=== PATIENT | female | born 1950 | race Caucasian/White ===

== ENCOUNTER 2024-07-11 08:41 | Observation (INO) ==
--- NOTE | 2024-06-05 10:14 | PAT Medication Instructions ---
Medication Instructions Date of Service June 05, 2024 Home Medications Vitamin C 1 tab PO QAM aspirin 81 mg capsule 81 mg PO DAILY atorvastatin 40 mg tablet 40 mg PO HS cholecalciferol (vitamin D3) 125 mcg (5,000 unit) tablet (Vitamin D3) 125 mcg PO DAILY hydrochlorothiazide 12.5 mg tablet 12.5 mg PO HS losartan 25 mg tablet 25 mg PO HS zinc 1 tab PO DAILY ASK your prescriber and surgeon aspirin 81 mg capsule 81 mg PO DAILY DO NOT take the morning of surgery Vitamin C 1 tab PO QAM cholecalciferol (vitamin D3) 125 mcg (5,000 unit) tablet (Vitamin D3) 125 mcg PO DAILY zinc 1 tab PO DAILY Take evening before surgery atorvastatin 40 mg tablet 40 mg PO HS hydrochlorothiazide 12.5 mg tablet 12.5 mg PO HS losartan 25 mg tablet 25 mg PO HS Other Notes NOTHING TO EAT OR DRINK AFTER MIDNIGHT. If you have any questions please call us at [phone] or [phone] or [phone] or [phone]
--- NOTE | 2024-06-13 12:32 | Anesthesiology Consultation ---
Date of Service June 13, 2024 Assessment & Plan (1) Encounter for pre-operative examination: - Infectious disease screening: Per assessment on 06/13/24- No known recent infectious disease contacts or current infectious disease symptoms. - Outpatient joint assessment: Pt currently scheduled for inpatient pathway. If surgeon requests review for outpatient joint pathway, patient is not recommended candidate for outpatient joint program from anesthesia standpoint based on available information. Chart Review Chart Review: Acceptable Risk for Surgery and Patient seen in Pre Admission Testing Teaching & Discussion Pre-Anesthesia Teaching/Discussion Notes: Instructed NPO after midnight before surgery,except medications with 15 cc of water. Medication instructions provided according to the PAT guidelines. History Surgery Operation Date: 07/11/24 09:00 Proposed Procedures p Right Anterior Total Hip Arthroplasty - Jace Jordan, Height/Weight Height: 5 ft 6.5 in Weight: 98.9 kg Allergies Allergy/AdvReac Type Severity Reaction Status Date / Time latex Allergy Unknown Blister/itc Verified 06/05/24 08:55 christel Penicillins Allergy Unknown Itching Verified 06/05/24 09:17 Sulfa (Sulfonamide Allergy Unknown Itching Verified 06/05/24 08:55 Antibiotics) Medications Home Medications Medication Instructions Recorded Confirmed Last Taken Vitamin C 1 tab PO QAM 06/05/24 06/05/24 Unknown aspirin 81 mg capsule 81 mg PO DAILY 06/05/24 06/05/24 Unknown atorvastatin 40 mg tablet 40 mg PO HS 06/05/24 06/05/24 Unknown cholecalciferol (vitamin D3) 125 125 mcg PO DAILY 06/05/24 06/05/24 Unknown mcg (5,000 unit) tablet (Vitamin D3) hydrochlorothiazide 12.5 mg tablet 12.5 mg PO HS 06/05/24 06/05/24 Unknown losartan 25 mg tablet 25 mg PO HS 06/05/24 06/05/24 Unknown zinc 1 tab PO DAILY 06/05/24 06/05/24 Unknown Past Medical History Medical History Dyslipidemia History of COVID-19 (05/2020) Symptoms resolved HTN (hypertension) Hx of blood clots (2019) b/l lower extremities after having Covid; treated with blood thinners Obesity Osteoarthritis of hips, bilateral Renal insufficiency Exercise / Class Metabolic Activity II 4-5 Yardwork/Stairs/Walk up hill Past Surgical History Surgical History History of anesthesia reaction Difficulty breathing/chest heaviness with anesthesia emergence after lapar oscopy History of laparoscopy-assisted vaginal hysterectomy Partial (~1993) Hx of colonoscopy Hx of prior ablation treatment Lumbar ablation done for back pain Hx of total hysterectomy ~1994 Hx of wisdom tooth extraction Past Anesthesia History Other (Difficulty breathing/chest heaviness with anesthesia emergence after laparoscopy, Slow to wake) * Daughter: Abdominal pain with cholecystectomy, D&C x2 History of PONV History of PONV (Single episode) and Hx of Motion Sickness (Situational) Social History Smoking Status: Never smoker Do You Dip or Chew Tobacco: No Hx Alcohol Use: Yes alcohol intake frequency: holidays/special occasions only Hx Substance Use: No substance use type: does not use Review of Systems Patient denies chest pain, shortness of breath, dyspnea on exertion, fever, chills, cough, wheezing, palpitations. Physical Exam Vital Signs BP P TEMP SP02 RESP Physical Full cervical extension range of motion. Full TMJ range of motion. TMD __ finger breaths Mallampati Score ___ Dentition: intact, crown Lungs: clear throughout to auscultation Cardiac: regular rate and rhythm, no murmurs noted Spine: normal Carotid arteries: negative bruit Extremities: no LE edema Lab Results Anesthesia Preop Results Results Anesthesia Widget: WBC 6.25 K/ul (4.8-10.8) 06/13/24 Hgb 14.7 g/dl (12.0-16.0) 06/13/24 Hct 42.9 % (37.0-47.0) 06/13/24 Plt 191 K/uL (130-400) 06/13/24 Na 138 mmol/L (136-145) 06/13/24 K 4.3 mmol/L (3.5-5.1) 06/13/24 Cl 101 mmol/L (98-107) 06/13/24 CO2 32 mmol/L (21-32) 06/13/24 BUN 20 mg/dl (6-23) 06/13/24 Creat 1.13 mg/dl (0.6-1.2) 06/13/24 Glucose Level 93 mg/dl (70-99(Fasting)) 06/13/24 PT 10.6 Seconds (9.0-12.0) 06/13/24 PTT 25 Seconds (21-31) 06/13/24 INR 1.0 (0.9-1.1) 06/13/24 Blood Type A Negative 06/13/24 Antibody Screen NEGATIVE 06/13/24 Testing Electrocardiogram Date: 06/13/24 SB at 56bpm. "Otherwise normal ECG" Chest X-Ray Date: 06/13/24 FINDINGS: Heart size is normal. Lungs are clear. No pneumothorax or pleural effusion. Bones appear grossly intact. IMPRESSION: No acute process.
--- NOTE | 2024-07-10 06:59 | History & Physical Report ---
Date of Service July 10, 2024 Assessment & Plan (1) Osteoarthritis of right hip: We will proceed with a right anterior total of arthroplasty. Postoperatively she will be started on Eliquis for DVT prophylaxis and kept overnight in the hospital for postop medical management. [facility]. History of Present Illness Chief Complaint: Osteoarthritis of the right hip. Primary Care Provider: Po Farley DO Mary is a pleasant 73-year-old female who has been dealing with chronic increasing right hip and groin pain. She had seen another local physician. She has had multiple intra-articular hip injections. Unfortunately, her hips are still really bothering her. X-rays and clinical examination have been diagnostic for advanced osteoarthritis of the right hip. After failing conservative treatment, she has elected to proceed with a right anterior total of arthroplasty. Allergies Allergy/AdvReac Type Severity Reaction Status Date / Time latex Allergy Unknown Blister/itc Verified 06/05/24 08:55 christel Penicillins Allergy Unknown Itching Verified 06/05/24 09:17 Sulfa (Sulfonamide Allergy Unknown Itching Verified 06/05/24 08:55 Antibiotics) Home Medications Medication Instructions Recorded Confirmed Type Vitamin C 1 tab PO QAM 06/05/24 06/05/24 History aspirin 81 mg capsule 81 mg PO DAILY 06/05/24 06/05/24 History atorvastatin 40 mg tablet 40 mg PO HS 06/05/24 06/05/24 History cholecalciferol (vitamin D3) 125 125 mcg PO DAILY 06/05/24 06/05/24 History mcg (5,000 unit) tablet (Vitamin D3) hydrochlorothiazide 12.5 mg tablet 12.5 mg PO HS 06/05/24 06/05/24 History losartan 25 mg tablet 25 mg PO HS 06/05/24 06/05/24 History zinc 1 tab PO DAILY 06/05/24 06/05/24 History Past Med/Surg History Problem List (Updated 07/10/24 @ 06:58 by Jace Jordan DO) Osteoarthritis of right hip Encounter for pre-operative examination Medical History Obesity Osteoarthritis of hips, bilateral Renal insufficiency Hx of blood clots (2019) b/l lower extremities after having Covid; treated with blood thinners History of COVID-19 (05/2020) Symptoms resolved HTN (hypertension) Dyslipidemia Surgical History History of anesthesia reaction Difficulty breathing/chest heaviness with anesthesia emergence after laparoscopy Hx of colonoscopy Hx of prior ablation treatment Lumbar ablation done for back pain History of laparoscopy-assisted vaginal hysterectomy Partial (~1993) Hx of wisdom tooth extraction Hx of total hysterectomy ~1994 Social History Smoking Status: Never smoker Second Hand Exposure: No; Do You Dip or Chew Tobacco: No; Tobacco Cessation Education Requested by Patient: No Hx Alcohol Use: Yes Hx Substance Use: No Preferred Language: Yakut Communication Ability: Effective [employer] Supervisor Required: No Beliefs That Will Affect Care: None Current Living Situation: Spouse Other Information That Helps Us Care for You: No Feels Safe at Home: Yes Safety Concerns: Feels Safe At This Time Assistive Devices: Cane and Walker Assistive Devices Comment: uses cane/ walker prn Review of Systems All systems reviewed & are unremarkable except as noted in HPI & below. Physical Exam On physical exam of the right hip, she has decreased range of motion. She has pain with forced internal/external rotation. All of her pain is located in the groin.. Constitutional WD/WN, vitals as above Eyes PERRL, conjunctivae normal, anicteric sclerae ENMT external ear and nose normal, oropharynx normal Neck trachea midline, no thyromegaly Respiratory normal respiratory effort Cardiovascular RRR, no murmur, no edema Gastrointestinal (Abdomen) normal bowel sounds, soft, nontender, no hepatosplenomegaly Psychiatric A+Ox3, euthymic affect Results & Data Results & Data Laboratory Results . Diagnostic Findings X-rays of the right hip show advanced osteoarthritis with joint space narrowing, osteophyte formation, and [id number] tubulation. PG Care Time/CCT Total # of Minutes Spent Total Time Spent with Patient: Total time spent is greater than 50% in coordination of care (as documented) at patient's floor/unit and/or counseling patient: Coding Level of Care Code None Diagnoses Osteoarthritis of right hip M16.11
[~2024-07-11 08:41] MED LIST: ROPIVACAINE 0.5% 5 MG/ML 30 ML VIAL ONE
[2024-07-11] MEDS ORDERED: MIDAZOLAM HCL 1 MG/ML 2ML VIAL ONE ×2 (09:42)
[2024-07-11] MEDS: LR 500ML BOLUS, THEN 15ML/HR IV SCH (09:55)
[2024-07-11] MEDS: LR 60ML/HR IV SCH (09:55)
[2024-07-11] MEDS: FAMOTIDINE 20 MG TAB PO SCH (09:57)
[2024-07-11] MEDS: GABAPENTIN 300 MG CAP PO SCH (09:57)
[2024-07-11] MEDS: dexAMETHasone**PF** 10 MG/ML VIAL IV SCH (09:57)
[2024-07-11] MEDS: ACETAMINOPHEN 500 MG TAB PO SCH ×3 (09:57→18:06)
--- NOTE | 2024-07-11 10:45 | History & Physical Bridge Note ---
Date of Service July 11, 2024 History & Physical Bridge Note I have examined the patient, reviewed the History & Physical and in the interval since the performance of the History & Physical I have noted the following changes of clinical significance: no changes noted
[2024-07-11] MEDS ORDERED: HYDROmorphone INJ 1 MG/ML SYRINGE IV PRN ×2 (11:17→13:32)
[2024-07-11] MEDS ORDERED: ONDANSETRON INJ 2 MG/ML 2 ML VIAL IV PRN ×2 (11:17→13:32)
[2024-07-11] MEDS ORDERED: ePHEDrine sulfate 50 MG/ML AMP IV PRN (11:17)
[2024-07-11] MEDS ORDERED: ATROPINE SULFATE 0.1 MG/ML 10ML SYR IV PRN (11:17)
[2024-07-11] MEDS: TRANEXAMIC ACID 1,000 MG **IV Pre-op IV SCH (11:24)
[2024-07-11] MEDS: ceFAZolin 2000MG 2,000 MG/15 ML SYR IV SCH ×2 (11:39→20:21)
[2024-07-11] MEDS ORDERED: LIDOCAINE 2% 2 ML VIAL/AMP(20MG/ML) INFIL ONE (12:02)
[2024-07-11] MEDS ORDERED: PROPOFOL IV EMULSION 10 MG/ML 20 ML VIAL IV ONE (12:02)
[2024-07-11] MEDS ORDERED: ONDANSETRON INJ 2 MG/ML 2 ML VIAL ONE (12:02)
[2024-07-11] MEDS: TRANEXAMIC ACID 1,000 MG **IV Intra-op IV SCH (12:54)
[2024-07-11] MEDS: ROPIV 0.5% 246mg, Ketorolac 30mg, EPINEPHrine 0.5mg in NSS INFIL SCH (12:54)
[2024-07-11] MEDS ORDERED: PHENYLEPHRINE HCL 10 MG/ML VIAL ONE (12:55)
[2024-07-11] MEDS ORDERED: ePHEDrine sulfate 50 MG/5 ML SYR ONE (12:55)
[2024-07-11] MEDS ORDERED: HYDROmorphone INJ 0.5 MG/0.5 ML SYR IV PRN (13:32)
[2024-07-11] MEDS ORDERED: METOCLOPRAMIDE HCL INJ 5 MG/ML 2 ML VIAL IV PRN (13:32)
[2024-07-11] MEDS ORDERED: MAGNESIUM HYDROXIDE SUSP 30 ML UDC PO PRN (13:32)
[2024-07-11] MEDS ORDERED: bisacodyL 10 MG SUPP PR PRN (13:32)
[2024-07-11] MEDS ORDERED: NALOXONE HCL 0.4 MG/1 ML VIAL/CARP IV PRN (13:32)
[2024-07-11] MEDS ORDERED: oxyCODONE HCL IR 5 MG TAB (IMMEDIATE RELEASE) PO PRN (13:32)
[2024-07-11] MEDS ORDERED: diphenhydrAMINE Capsule 25 MG CAP PO PRN (13:32)
--- NOTE | 2024-07-11 13:56 | Fluoroscopy Report ---
FL hip RT 1V CLINICAL HISTORY: RT ANT HIP COMPARISON STUDY: Right hip radiograph April 22, 2024. FLUOROSCOPY TIME: 19 seconds. Ka, r: 2.3486 mGy FLUOROSCOPIC IMAGES: 1 FINDINGS: Fluoroscopy was provided during anterior total right hip arthroplasty. Alignment is anatomi c. There is no acetabular screw. No fractures are identified. IMPRESSION: Fluoroscopy provided during anterior total right hip arthroplasty. ACT 112: Negative or not required by law. Electronically signed by: Domenico Villafana M.D. 07/11/2024 1:54 PM
--- NOTE | 2024-07-11 14:23 | XRay Report ---
XR hip 1V RT w pelvis CLINICAL HISTORY: Postoperative evaluation. COMPARISON: Right hip radiographs April 22, 2024. FINDINGS: Alignment of the total right hip arthroplasty is anatomic. There is no periprosthetic frac ture or unexpected radiopaque foreign body. There are skin baudilio. Acetabular screw is in place. Sev ere left hip joint space narrowing is noted with osteophytosis and subchondral sclerosis. A lucency p rojects over the left femoral head. IMPRESSION: Expected findings following total right hip arthroplasty. ACT 112: Negative or not required by law. Electronically signed by: Domenico Villafana M.D. 07/11/2024 2:21 PM
--- NOTE | 2024-07-11 14:57 | Operative Report ---
PG Post Operative Report Pre & Post Diagnosis Operation Date: 07/11/24 11:00 Pre-Op Diagnosis: Osteoarthritis of right hip Post-Op Diagnosis: Osteoarthritis of right hip I identified the patient and participated in the time-out.: Yes Procedure Operation Date: 07/11/24 11:00 Actual Procedures p Right Anterior Total Hip Arthroplasty(Right) - Jace Jordan DO Surgeon Jace Jordan DO Senior Medical Technologist Shanell Johnson PA-C Estimated Blood Loss 250 Findings Consistent with Post-Op Diagnosis Specimens Right femoral head Description of Procedure Implants used I used a ZimmerBiomet total hip arthroplasty system with a size 2 high offset Avenir Complete stem, a 52 mm G7 cup with a 25mm screw, an E1 polyethylene liner, a 36 mm ceramic head with a 0 neck. Mary arrived at the hospital for the above procedure. She was seen in the preoperative holding area and the operative extremity was identified and signed. She was given a spinal anesthetic, a preoperative antibiotic, and TXA. She was then taken back to the operating room and laid on the table in the supine position. She was given basic sedation. The operative leg was secured to a Puristst leg positioner. The hip was then prepped and draped in sterile fashion. A timeout was done and the patient and the operative extremity was properly identified. An anterior approach was used. Dissection was taken down through the fascia and the tensor muscle belly was retracted laterally and the rectus was retracted medially. The circumflex vessels were identified and ligated. The capsule was then incised and tagged for later repair. The femoral neck was then cut and the femoral head was removed. The acetabulum was exposed. Time was spent doing a complete circumferential labral release. Sequential reaming of the acetabulum up to a size 51 reamer was done. Final reamings were done under fluoroscopy to ensure appropriate version. A Biomet 52 mm G7 cup was then impacted into place. A single 25 mm screw was placed. The E1 polyethylene liner was then snapped into place. Surrounding soft tissues were then injected with 100 cc of an orthopedic pain control cocktail. The proximal femur was then exposed. Sequential broaching up to a size 2 broach was done. Off that broach a size 36 head with a 0 neck was trialed. The hip was reduced and fluoroscopic images showed anatomic alignment of the implants in acceptable length. The broach was removed. The final size 2 high offset Avenir Complete stem was then impacted into place. A ceramic 36 mm head with a 0 neck was then impacted onto the stem and the hip was reduced. Final fluoroscopic images showed anatomic alignment of the hip. The capsule was then closed with #1 Vicryl suture. A dilute betadyne lavage was then done for 3 minutes. The joint was then irrigated with normal saline solution. The fascia was closed with #1 PDS suture. Skin was closed with 2-0 Vicryl, baudilio, and a Silverlon dressing. She was then transferred to a hospital bed and taken to the post anesthesia care unit in stable condition. She tolerated the procedure well. Shanell Johnson PA-C was present for the entire procedure. He was critical for patient positioning, prepping, draping, retraction exposure, wound closure and application of sterile dressing. I attest to the content of the Intraoperative Record and any orders documented therein. Any exceptions are noted below.
--- NOTE | 2024-07-11 15:05 | Anesthesiology Progress Note ---
Date of Service July 11, 2024 Anesthesia Post Procedure Vital Signs Vital Signs: Temp Pulse Resp BP Pulse Ox O2 Del Method O2 Flow Rate 07/11/24 15:00 60 14 114/66 94 Room Air 07/11/24 14:45 62 18 102/60 95 Room Air 07/11/24 14:25 36.3 C L 63 16 106/63 96 Room Air 07/11/24 14:15 64 20 106/65 96 Room Air 07/11/24 14:05 70 16 118/58 L 98 Room Air 07/11/24 13:55 65 14 114/60 99 Room Air 07/11/24 13:45 66 14 106/64 99 Oxymask 3 07/11/24 13:34 36.6 C 74 16 105/71 96 Oxymask 6 07/11/24 09:38 36.8 C 66 18 148/99 H 99 Room Air Pain Intensity Right Hip: Pain Intensity: 5 Transfer of Care Handoff Completed per policy Notes Mental Status: alert / awake / arousable Patient Amnestic to Procedure: Yes Nausea / Vomiting: adequately controlled Pain: adequately controlled Airway Patency, RR, SpO2: stable & adequate BP & HR: stable & adequate Hydration State: stable & adequate Neuraxial Anesthesia: was administered and sensory block is resolving Anesthetic Complications: no major complications apparent
[2024-07-11] MEDS ORDERED: Nursing to Pharmacy Communication SCH (16:15)
[2024-07-11] MEDS: KETOROLAC TROMETHAMINE 15 MG/ML VIAL IV SCH (16:37)
--- OUTSIDE RECORDS SUMMARY | 2024-07-11 19:11 | External Medical Summary | Summary of Care ---
Author Name Unknown Organization [facility] Address [address] [place] [address] Phone [phone] Care Team Providers Care Search Engineer Name Role Phone Andrei Farely DO Primary Care Provider Reason for Visit * Reason Onset Date Comments Medication Refill 06/26/2024 Encounter Details Date Type Department Care Team (Late st Contact Info) Description 06/26/2024 Refill Family Practice [facility] [address] [place] [address] Andrei Farley DO [address] [place] [address] Encounter for long-term (current) use of medications*; Dyslipidemia, goal LDL below 130 Allergies Active Allergy Reactions Criticality Noted Date Comments Latex 10/28/1999 Peanut Oil Diarrhea 02/07/2022 Soy Allergy 08/13/2014 Sulfa Antibiotics 12/04/2005 rash documented as of this encounter (statuses as of 06/27/2024) Medications Medication Sig Dispensed Refills Start Date End Date Status Cyanocobalamin (VITAMIN B-12) 1000 MCG Tablet Take 1 Tablet by mouth in the morning. Active Vitamin C 100 MG Oral Tablet Take 1 Tablet by mouth in the morning. Active Vitamin D 25 MCG (1000 UT) Oral Tablet Take by mouth. Active Aspirin 81 MG Oral Tablet Delayed Release Take 1 Tablet by mouth in the morning. 2 tablets daily. Active hydroCHLOROthiazi de 25 MG Oral Tablet (Hydrodiuril)Fouzia cations:HTN, goal below 130/80,HTN, goal below 150/90,Leg swelling Take 1/2 to 1 tablet by mouth daily as needed for leg swelling. 90 Tablet 3 03/06/2024 Active Atorvastatin Calcium 40 MG Oral Tablet (Lipitor)Indicati ons:takes at night Take 1 Tablet by mouth in the morning. 90 Tablet 1 06/27/2024 Active Losartan Potassium 25 MG Oral Tablet (Cozaar) Take 1 Tablet by mouth in the morning. 90 Tablet 1 06/27/2024 Active Atorvastatin Calcium 40 MG Oral Tablet (Lipitor)Indicati ons:takes at night Take 1 Tablet by mouth in the morning. 90 Tablet 1 01/27/2024 06/26/2024 Discontinued (Refill) Losartan Potassium 25 MG Oral Tablet (Cozaar) Take 1 Tablet by mouth in the morning. 90 Tablet 1 01/27/2024 06/26/2024 Discontinued (Refill) documented as of this encounter (statuses as of 06/27/2024) Active Problems Problem Noted Date Diagnosed Date History of DVT (deep vein thrombosis) 12/06/2022 Hypertensive kidney disease with stage 3a chronic kidney disease 01/05/2022 Hypertensive kidney disease with stage 3b chronic kidney disease 08/08/2021 Overview: Per CKD protocol Prediabetes 04/04/2021 Overview: Per Prediabetes protocol Advanced directives, counseling/discussion 11/06 Pelvic pain in female 01/31/2019 Urge incontinence of urine 01/31/2019 History of endometriosis 08/22/2018 Advanced directives, counseling/discussion 08/13 HTN, goal below 130/80 08/13/2018 Obesity, Class I, BMI 30.0-34.9 (see actual BMI) 08/13/2018 Cystocele, lateral 03/26/2018 H/O hysterectomy for benign disease 03/26/2018 Irritable bowel syndrome 12/04/2005 Mitral valve disorder documented as of this encounter (statuses as of 06/27/2024) Resolved Problems Problem Noted Date Diagnosed Date Resolved Date Acute deep vein thrombosis ( DVT) of proximal vein of left lower extremity 01/05/2022 12/06/2022 Chronic kidney disease, stage 3b 09/05/2021 03/06/2024 Overview: Per CKD protocol Hypertensive kidney disease with stage 3a chronic kidney disease 07/05/2020 08/11/2021 Overview: Per CKD protocol Hypertensive kidney disease with chronic kidney disease stage III 06/04/2019 07/08/2020 Overview: Per CKD protocol Kidney disease, chronic, sta ge III (GFR 30-59 ml/min) 02/03/2019 06/11/2019 Overview: Per CKD protocol Need for pneumococcal vaccination 08/13/2018 09/11/2018 Hair loss 08/13/2018 09/11/2018 Breast cancer screening 03/26/201812/2018 Encounter for examination fo r normal comparison and control in clinical research program 01/23/2018 03/29/2020 Overview: DO NOT DELETE [employer] DETECT Study: Project # [id number], Shop Estimator: Gareth Hairston, PhD. SUMMARY: Goal: Establish test characteristics (sensitivity, specificity, PPV, NPV) of a circulating tumor DNA (ctDNA)-based test for cancer. Hypothesis: Circulating tumor DNA (ctDNA) and elevated protein biomarkers (together, the marker panel) can be detected in asymptomatic individuals with early cancer. Specific Aim 1: Determine the prevalence of a positive marker panel test in a prospective clinical cohort of 10,000 asymptomatic women ages 65 to 75 years. Specific Aim 2: Determine the sensitivity, specificity, positive predictive value (PPV) and negative predictive value (NPV) of a marker panel test to identify histologically proven cancers that develop within 5-years of the marker panel evaluation. CONTACTS: During normal business hours, contact study staff at ; after hours Shop Estimator via the [facility] hospital dosier operator . Please contact study team before resolving/deleting from patients problem list. Study phone number: [phone]. Diagnosis changed due to Research Module. Go to Snapshot for study details. Encounter for examination fo r normal comparison and control in clinical research program 01/23/2018 04/27/2022 Overview: DO NOT DELETE - [employer] DETECT Study: Project # [id number], Shop Estimator: Mario Alberto Alicia, MS, MPH. SUMMARY: Goal: Establish test characteristics (sensitivity, specificity, PPV, NPV) of a circulating tumor DNA (ctDNA)-based test for cancer. - Hypothesis: Circulating tumor DNA (ctDNA) and elevated protein biomarkers (together, the marker panel) can be detected in asymptomatic individuals with early cancer. - Specific Aim 1: Determine the prevalence of a positive marker panel test in a prospective clinical cohort of 10,000 asymptomatic women ages 65 to 75 years. - Specific Aim 2: Determine the sensitivity, specificity, positive predictive value (PPV) and negative predictive value (NPV) of a marker panel test to identify histologically proven cancers that develop within 5-years of the marker panel evaluation. - CONTACTS: During normal business hours, contact study staff at ; after hours Shop Estimator via the [facility] hospital dosier operator . - Please contact study team before resolving/deleting from patients problem list. Study phone number: [phone]. Diagnosis changed due to Research Module. Go to Snapshot for study details. Hypertension 11/29/2018 documented as of this encounter (statuses as of 06/27/2024) Immunizations Name Administration Dates Next Due COVID-19, mRNA, LNP-s, No Pr eserve, Ages 6 Mos-5 Yrs (Moderna) 11/10/2021,12/10/2020,11/19/2020 Pneumococcal Conjugate Vacc, 13 Valent (Prevnar) 05/09/2017 Pneumococcal Polysaccharide PPV23 (Pneumovax) 08/13/2018 Seasonal Influenza Vac., MDV , IM, 0.5 mL (Fluzone) 05/26/2011,07/24/2007,06/14/2006 Seasonal Influenza, Quadriva lent Hd (Fluzone Hd) 05/15/2022,06/30/2021 TDAP, Age 7 and older, IM (Adacel) 01/02/2011 Zoster Vaccine Recombinant (Shingrix) 05/19/2021 ,06/18/2019 documented as of this encounter Social History Tobacco Use Types Packs/Day Years Used Date Smoking Tobacco: Never Smokeless Tobacco: Never Comments:occ passive smoke Alcohol Use Standard Drinks/Week Comments Yes 0 (1 standard drink = 0.6 oz pur e alcohol) occasional PHQ-2 Answer Date Recorded PHQ Adult Total Score 0 08/08/2021 Hunger Vital Sign Answer Date Recorded Worried About Running Out of Food in the Last Ye ar Never true 04/14/2020 Ran Out of Food in the Last Year Never true 04/14/2020 Utilities Answer Date Recorded Do you have trouble paying y our heating, water, or electric bill? (Adult - for ages 18 years and over) Not on file 02/12/2024 Is your family able to pay t he heat, water, or electric bill? (Household - for ages 0-17 years) Not on file 02/12/2024 Does your family have access to good internet? (Household - for ages 0-17 years) Not on file 02/12/2024 Social Connections Answer Date Recorded How often do you feel lonely or isolated from those around you? (Adult - for ages 18 years and over) Not on file 02/12/2024 Sex and Gender Information Value Date Recorded Sex Assigned at Female 04/14/2020 9:09 AM EDT Gender Identity Female 04/14/2020 9:09 AM EDT Sexual Orientation Straight 04/14/2020 9: 09 AM EDT Job Start Date Occupation Industry Not on file Not on file Not on file documented as of this encounter Miscellaneous Notes * Telephone Encounter - Emile Valenzuela [facility] - 06/27/2024 8:29 AM EDTSigned Prescriptions: Disp Refills Atorvastatin Calcium 40 MG Oral Tablet (Li*90 Tab*1 Sig: Take 1 Tablet by mouth in the morning.Authorizing Provider: ANDREI FARLEY User: EMILE LINDSAY Losartan Potassium 25 MG Oral Tablet (Coza*90 Tab*1 Sig: Take 1 Tablet by mouth in the morning.Authorizing Provider: ANDREI FARLEY User: EMILE LINDSAY Electronically signed by Emile Valenzuela [facility] at 06/27/2024 8:29 AM EDT * Telephone Encounter - Emile Valenzuela [facility] - 06/27/2024 8:27 AM EDT Provided 90 days supply with 1 refill(s) until upcoming appointment. Per refill protocol patient should have Lipid panel and CMP on file within past year. Reviewed AMP report, Care Gaps/Health Maintenance, medications list, and for any routine labs typically ordered for this patient. Lab orders placed. Please contact patient to advise of labs ordered for blood draw. Fasting is not required. Advise toobtain labs before her scheduled office visit 09/08/2024. Thank You, Emile Lindsay [facility] Clinical Pharmacist [facility] ([facility]) 06/27/2024, 8:27 AM Electronically signed by Emile Valenzuela [facility] at 06/27/2024 8:29 AM EDT * Telephone Encounter - Nafisa Linton PHARM Tech - 06/26/2024 9:08 AM EDT Did you pend patient's preferred pharmacy and medication before forwarding?yes Pharmacy: [facility] [address] [place] [address] Pending Prescriptions: Disp Refills Atorvastatin Calcium 40 MG Oral Tablet (L*90 Tab*1 Sig: Take 1 Tablet by mouth in the morning. Losartan Potassium 25 MG Oral Tablet (Coz*90 Tab*1 Sig: Take 1 Tablet by mouth in the morning. Last Visit: 03/06/2024 (in office), Visit date not found (telemedicine) Next Visit: 09/08/2024 If no future appointments scheduled, and last appointment is greater than a year ago, please schedule patient for a follow-up appointment Last date the medication was ordered: 01/27/2024 Is this request for a controlled substance?No Urine Drug Screen:No results found for this or any previous visit. Patient Phone Numbers Labs: Lab Results Component Value Date/Time CREAT 1.1 (H) 06/25/2023 09:38 AM CREAT 1.1 (H) 01/13/2019 09:50 AM POTASSIUM 4.6 06/25/2023 09:38 AM POTASSIUM 4.8 11/07/2019 09:21 AM TSH 1.74 08/13/2018 09:29 AM LDL 84 06/25/2023 09:38 AM LDL 143 (H) 08/13/2018 09:29 AM LDL 153. (H) 05/07/1996 11:45 AM ALT 25 06/25/2023 09:38 AM ALT 22 06/22/2014 03:40 PM HGBA1C 5.9 (H) 06/25/2023 09:38 AM HGBA1C 5.5 08/13/2018 09:29 AM documented in this encounter Plan of Treatment Upcoming Encounters Date Type Department Care Team (Late st Contact Info) Description 07/16/2024 11:00 AM EST Office Visit Orthopaedics [facility] [address] [place] [address] Jace Andrade, DO [address] [place] [address] 09/08/2024 3:00 PM EST Office Visit [facility] [address] [place] [address] Andrei Farley, DO [address] [place] [address] 03/19/2025 10:20 AM EDT Office Visit [facility] [address] [place] [address] Andrei Farley, DO [address] [place] [address] 03/09/2026 9:40 AM EDT Office Visit [facility] [address] [place] [address] Andrei Farley, DO [address] [place] [address] Scheduled Orders Name Type Priority Associated Diagnoses Orde r Schedule LIPID PANEL WITH DIRECT LDL IF TG IS HIGH Lab Routine Encounter for long-term (current) use of medications Expected: 06/27/2024 (Approximate), Expires: 06/27/2025 COMPREHENSIVE METABOLIC PANEL Lab Routine Encounter for long-term (current) use of medications Expected: 06/27/2024 (Approximate), Expires: 06/27/2025 Scheduled Procedures Name Priority Associated Diagnoses Date/Ti me COLONOSCOPY FLEXIBLE PROXIMAL DIAGNOSTIC Recall History of colon polyps Health Maintenance Due Date Last Done Comments Cologuard 1996 Sigmoidoscopy 1996 Fecal Occult Blood Test 11/24/1998 11/24/1997 DTap/Tdap Vaccines (2 - Td or Tdap) 01/02/2021 01/02/2011, 01/25/2001, 01/14/1990 Adult Wellness Visit 08/08/2022 08/08/2021 Depression Screening 08/08/2022 08/08/2021 CKD HGB USE SMARTSET 65501 06/08/202306/08, 06/08/2022, 03/18/2021, Additional history exists GFR 12/25/2023 06/25/2023, 05/27, 01/30/2022, Additional history exists COVID-19 Vaccine ( season) 2024 11/10/2021, 12/10/2020, 11/19/2020 Influenza Vaccine (FLU shot) (#1) 2024 05/15/2022, 06/30/2021, 05/26/2011, Additional history exists Albumin/Creatinine Ratio 06/25/2024 023, 02/03/2022, 01/13/2019 CKD PHOS USE SMARTSET 26382 06/25/202405/29, 06/08/2022, 01/30/2022, Additional history exists HbA1c 06/25/2024 06/25/2023, 05/27, 01/30/2022, Additional history exists Mammogram 03/19/2025 03/19/2024, 02/24, 09/09/2021, Additional history exists Colonoscopy 02/17/2027 02/17/2022, 01/26, 08/18/2014, Additional history exists Colorectal Cancer Screening 02/17/2027 Lipid Panel 06/25/2028 06/25/2023, 05/27, 01/30/2022, Additional history exists DXA Scan Discontinued 10/23/2001, 10/23/2001 Pneumococcal Vaccine: 65+ Years Completed 08/13/2018, 05/09/2017 Zoster Vaccines Completed 05/19/2021, 06/18/2019 RETIRED - COLONOSCOPY-EVERY 5 YRS AGES 18-100 Discontinued 02/17/2022, 02/17/2022, 08/18/2014, Additional history exists HPV (Gardasil) Vaccine Aged Out No lo nger eligible based on patient's age to complete this topic Hepatitis B Vaccine Aged Out No longe r eligible based on patient's age to complete this topic MENINGOCOCCAL (MENACTRA/MENVEO) Aged Out No longer eligible based on patient's age to complete this topic documented as of this encounter Medical Devices Not on filedocumented as of this encounter Visit Diagnoses Diagnosis Encounter for long-term (current) use of medications- Primary Encounter for long-term (current) use of other medications Dyslipidemia, goal LDL below 130 Other and unspecified hyperlipidemia documented in this encounter Care Teams Search Engineer Relationship Specialty Start Date End Date Andrei Farley DO [address] [place] [address] PCP - General Family Medicine 03/26/18 documented as of this encounter
--- OUTSIDE RECORDS SUMMARY | 2024-07-11 19:11 | External Medical Summary | Summary of Care ---
Author Name Unknown Organization [facility] Address [address] [place] [address] Phone [phone] Care Team Providers Care Song Lyricist Name Role Phone Andrei Farley DO Primary Care Provider Reason for Visit * Reason Onset Date Comments Medication Refill 06/26/2024 Encounter Details Date Type Department Care Team (Late st Contact Info) Description 06/26/2024 Refill Family Practice [facility] [address] [place] [address] Andrei Farley DO [address] [place] [address] Encounter for long-term (current) use of medications*; Dyslipidemia, goal LDL below 130 Allergies Active Allergy Reactions Criticality Noted Date Comments Latex 10/28/1999 Peanut Oil Diarrhea 02/07/2022 Soy Allergy 08/13/2014 Sulfa Antibiotics 12/04/2005 rash documented as of this encounter (statuses as of 06/30/2024) Medications Medication Sig Dispensed Refills Start Date [...] as of this encounter (statuses as of 06/30/2024) Active Problems Problem Noted Date Diagnosed Date [...] as of this encounter (statuses as of 06/30/2024) Resolved Problems Problem Noted Date Diagnosed Date [...] program 01/23/2018 03/29/2020 Overview: DO NOT DELETE [employer] DETECT Study: Project # [id number], Tax Services Specialist: Gareth Hairston, PhD. SUMMARY: Goal: Establish test [...] contact study staff at ; after hours Tax Services Specialist via the [facility] hospital offset second press operator . Please contact study team before resolving/deleting from patients problem list. Study phone number: [phone]. Diagnosis changed due to Research Module. Go to Snapshot for study details. Encounter for examination fo r normal comparison and control in clinical research program 01/23/2018 04/27/2022 Overview: DO NOT DELETE - [employer] DETECT Study: Project # [id number], Tax Services Specialist: Mario Alberto Alicia, MS, MPH. SUMMARY: Goal: [...] contact study staff at ; after hours Tax Services Specialist via the [facility] hospital offset second press operator . - Please contact study team before resolving/deleting from patients problem list. Study phone number: [phone]. Diagnosis changed due to Research Module. Go to Snapshot for study details. Hypertension 11/29/2018 documented as of this encounter (statuses as of 06/30/2024) Immunizations Name Administration Dates Next Due COVID-19, mRNA, LNP-s, No Pr eserve, Ages 6 Mos-5 Yrs (Moderna) 11/10/2021,12/10/2020,11/19/2020 Pneumococcal Conjugate Vacc, 13 Valent (Prevnar) 05/09/2017 Pneumococcal Polysaccharide PPV23 (Pneumovax) 08/13/2018 Seasonal Influenza Vac., MDV , IM, 0.5 mL (Fluzone) 05/26/2011,07/24/2007,06/14/2006,06/27 Seasonal Influenza, Quadriva lent Hd (Fluzone Hd) 05/15/2022,06/30/2021 TD - Tetanus/Diptheria (ADULT) 01/25/2001,198901/25/2011 TDAP, Age 7 and older, IM (Adacel) [...] encounter Miscellaneous Notes * Telephone Encounter - Ayaka Lira - 06/30/2024 5:42 PM EST Received message from [facility] regarding patient needing labs. Patient was notified. Successfully contacted patient and provided [facility] message. * Telephone Encounter - Emile Valenzuela, [facility] - 06/27/2024 8:29 AM EDTSigned Prescriptions: Disp Refills Atorvastatin Calcium 40 MG Oral Tablet (Li*90 Tab*1 Sig: Take 1 Tablet by mouth in the morning.Authorizing Provider: ANDREI FARLEY User: EMILE LINDSAY Losartan Potassium 25 MG Oral Tablet (Coza*90 Tab*1 Sig: Take 1 Tablet by mouth in the morning.Authorizing Provider: ANDREI FARLEY User: EMILE LINDSAY * Telephone Encounter - Emile Valenzuela [facility] - 06/27/2024 8:27 AM EDT Provided 90 [...] office visit 09/08/2024. Thank You, Emile Lindsay [facility] Clinical Pharmacist Centralized Clinical Pharmacy Services ([facility]) 06/27/2024, 8:27 AM * Telephone Encounter - Nafisa Linton PHARM Tech - 06/26/2024 9:08 AM EDT Did you pend patient's preferred pharmacy and medication before forwarding?yes Pharmacy: [facility] [address] [place] [address] Pending Prescriptions: Disp Refills Atorvastatin Calcium 40 [...] 07/16/2024 11:00 AM EST Office Visit Orthopaedics [facility] [address] [place] [address] Jace Andrade, DO [address] [place] [address] 09/08/2024 3:00 PM EST Office Visit [facility] [address] [place] [address] Andrei Farley DO [address] [place] [address] 03/19/2025 10:20 AM EDT Office Visit [facility] [address] [place] [address] [address] Andrei Farley, [address] [place] [address] 03/09/2026 9:40 AM EDT Office Visit Family Practice [facility] [address] [place] [address] Andrei Farley DO [address] [place] [address] Scheduled Orders Name Type Priority Associated Diagnoses [...] Screening 08/08/2022 08/08/2021 CKD HGB USE SMARTSET 61037 06/08/202306/08, 06/08/2022, 03/18/2021, Additional history exists GFR 12/25/2023 06/25/2023, 05/27, 01/30/2022, Additional history exists COVID-19 Vaccine ( season) 2024 11/10/2021, 12/10/2020, 11/19/2020 Influenza Vaccine (FLU shot) (#1) 2024 05/15/2022, 06/30/2021, 05/26/2011, Additional history exists Albumin/Creatinine Ratio 06/25/202406/25/ 023, 02/03/2022, 01/13/2019 CKD PHOS USE SMARTSET 96878 06/25/202405/29, 06/08/2022, 01/30/2022, Additional history exists HbA1c [...] hyperlipidemia documented in this encounter Care Teams Song Lyricist Relationship Specialty Start Date End Date Andrei Farley DO [address] [place] [address] PCP - General Family Medicine 03/26/18 documented as of this encounter
[2024-07-11] MEDS: ATORVASTATIN 40 MG TAB PO SCH (20:15)
[2024-07-11] MEDS: hydroCHLOROthiazide 25 MG TAB PO SCH (20:16)
[2024-07-11] MEDS: LOSARTAN POTASSIUM 25 MG TAB PO SCH (20:21)
[2024-07-11] MEDS: DOCUSATE SODIUM 100 MG CAP PO SCH (20:21)
[2024-07-11] MEDS: SENNA 8.6 MG TAB PO SCH (20:21)
--- NOTE | 2024-07-12 06:50 | Orthopedic Progress Note ---
Date of Service July 12, 2024 Assessment & Plan (1) Status post right hip replacement: Overall she is doing very well. She is not having much pain in the right hip. She will be seen by physical therapy today for ambulation and range of motion exercises. She is on Eliquis for DVT prophylaxis. She can be discharged to home later today. She will follow-up orthopedics in 2 weeks. Osmar Hernandez was seen and examined at bedside this morning. Overall she is doing very well. She is not having much pain in the right hip. She has been up and ambulating to the bathroom. She has no complaints.. Review of Systems All systems reviewed & are unremarkable except as noted in HPI & below. Physical Exam On physical exam of the right hip, the dressing is clean and dry. Her leg is out full extension. She has active dorsiflexion plantarflexion of her right ankle.. Results & Data Results & Data Laboratory Results . Diagnostic Findings Postoperative x-rays of the right hip show the prosthesis to be in anatomic alignment without any evidence of fracture, dislocation, or loosening.. PG Care Time/CCT Total # of Minutes Spent Total Time Spent with Patient: Total time spent is greater than 50% in coordination of care (as documented) at patient's floor/unit and/or counseling patient: Coding Level of Care Code 23237 Post Operative Follow-Up Diagnoses Status post right hip replacement Z96.641
--- NOTE | 2024-07-12 06:51 | Discharge Summary ---
Date of Service July 12, 2024 Admission HPI (Per Admitting) Mary is a pleasant 73-year-old female who has been dealing with chronic increasing right hip and groin pain. She had seen another local physician. She has had multiple intra-articular hip injections. Unfortunately, her hips are still really bothering her. X-rays and clinical examination have been diagnostic for advanced osteoarthritis of the right hip. After failing conservative treatment, she has elected to proceed with a right anterior total of arthroplasty. Admission Exam (Per Admitting) On physical exam of the right hip, she has decreased range of motion. She has pain with forced internal/external rotation. All of her pain is located in the groin.. Principal Diagnosis Same as "Discharge Diagnosis" noted below under Discharge Instructions. Discharge Exam On physical exam of the right hip, the dressing is clean and dry. Her leg is out full extension. She has active dorsiflexion plantarflexion of her right ankle.. Discharge Data Procedures Performed Operation Date: 07/11/24 11:00 Actual Procedures p Right Anterior Total Hip Arthroplasty(Right) - Jace Jordan DO Ordered Studies 07/11/24 11:00 FL hip RT 1V Routine Hospital Course (1) Status post right hip replacement: On July 11, 2024 Mary arrived at [facility] and underwent a right hip replacement without complication. She had a spinal anesthetic. Postoperatively she was started on Eliquis for DVT prophylaxis and transferred to the general orthopedic floors. Her hospital course was uneventful. On postop day #1, her vital signs were stable and her pain was well-controlled. She was able to participate well with physical therapy doing ambulation and range of motion exercises. She was then discharged home. She will follow-up with orthopedics in 2 weeks. PG Care Time/CCT Total # of Minutes Spent Total Time Spent with Patient: Total time spent is greater than 50% in coordination of care (as documented) at patient's floor/unit and/or counseling patient: Discharge Plan Discharge Items Patient Disposition: Home - Self-Care Reason For Visit: Right Hip Arthritis Discharge Diagnosis: Status post hip replacement Activity: Per Instructions section Non-emergency contact: Surgeon Call non-emergency contact if: your wound has increased redness and your wound has increased drainage Follow-up/Referrals: Po Farley DO [Primary Care Provider] - Diet: Regular Addtl Attending Provider Instructions: Activity and Therapy Recommendations: * If you are using [facility] then therapy will be provided at your home until they feel you have accomplished all of your goals. * If you are using [facility] then Physical Therapy will be provided until they feel you are ready to start Outpatient Physical Therapy. * If you are not using home therapy then Outpatient Physical Therapy should start about 3-5 days from your day of surgery. Therapy will last about 6-10 weeks * You were shown a series of exercises in the hospital. Do these exercises three times each day including the exercises you were shown in physical therapy. * Get up and walk several times each day.~ For the first four weeks, try not to stand or walk for more than one hour at a time. If you do stand or walk for more than one hour, you will not hurt anything, but your leg will likely swell.~~ * As you feel comfortable, you may change from the walker or crutches to a cane and~then to independent walking. Medications: * Narcotic You will likely be sent home from the hospital with a prescription f or the narcotic pain medication that worked best throughout your stay. * Cefadroxil -take the antibiotic twice a day for 10 days to help prevent infection. * Take Eliquis 2.5 mg twice a day for 4 weeks after your surgery. * Other medications may be prescribed for specific circumstances. If you have any questions, please call the office at . * Resume previous home medications unless otherwise instructed TEDs/Elastic Stockings: The white elastic stockings help limit swelling and prevent blood clots from forming in your legs. The more you wear them, the more they work. Wear them for six weeks. Dressing Care: Leave the Silverlon dressing in place for 7 days. After 7 days you may remove the dressing. If the incision is not draining then you may leave the baudilio open to air. If there is a little bit of drainage or if the baudilio are getting stuck on your clothing then cover the incision with a dry dressing. The baudilio will be removed at your 2 week follow-up appointment. Showering: You may shower with the Silverlon dressing in place. Do not let the shower spray hit the dressing directly. Pat the Silverlon dressing dry. If the dressing becomes wet underneath, then simply remove the dressing. Keep the incision dry until you are 7 days out from the day of surgery. After 7 days you may remove the Silverlon dressing and shower with the baudilio exposed. Let soapy water run over the baudilio and pat them dry. Do not scrub or soak the incision. Diet: You may resume your previous diet. Things To Watch For: * Drainage from the incision site that occurs more than one week after your surgery. * Increased redness at the incision site. * Fever above 102 degrees Fahrenheit. * Unusual chest pain or shortness of breath. * Call [facility] at with any of the above problems Follow-Up Visit: Follow-up with Dr. Jordan's PA (Jace Phoenix) 2-3 weeks after your day of surgery. He will remove your baudilio and answer any questions. If you have any additional questions or concerns, Dr Jordan is usually in the office at the same time and will be available An appointment was probably scheduled when you signed-up for surgery in the office. If you have any questions call Office Instructions: More detailed instructions as well as Frequently Asked Questions were provided in a folder by our office when you signed-up for surgery. Please review these instructions when you get home. If you have any further questions or concerns, please feel free to call the office at [phone] Pending Studies at Discharge: No Stand-Alone Forms: [facility] Medications and DC Order Prescriptions: New Eliquis 2.5 mg Tablet 2.5 mg PO BID 28 Days Qty: 56 0RF oxycodone 5 mg Tablet 5 mg PO Q4H PRN (Reason: pain) Qty: 30 0RF cefadroxil 500 mg capsule 500 mg PO BID 10 Days Qty: 20 0RF Continued atorvastatin 40 mg Tablet 40 mg PO HS losartan 25 mg Tablet 25 mg PO HS hydrochlorothiazide 12.5 mg Tablet 12.5 mg PO HS cholecalciferol (vitamin D3) [Vitamin D3] 125 mcg (5,000 unit) Tablet 125 mcg PO DAILY aspirin 81 mg Capsule 81 mg PO DAILY Vitamin C 1 tab PO QAM zinc 1 tab PO DAILY Discharge Orders: Discharge Order (Routine); Ordered 07/12/24 Ordered By: Jace Jordan Admission Data Admit Date/Time: 07/11/24 13:32 Attending Provider: Jace Jordan Admit Provider: Jace Jordan Primary Care Provider: Po Farley
[2024-07-12] MEDS ORDERED: ZINC PO SCH (09:00)
[2024-07-12] MEDS ORDERED: ASPIRIN 81 MG ECTAB PO SCH (09:00)
[2024-07-12] MEDS: CHOLECALCIFEROL 125 MCG (5,000 UNITS) TAB PO SCH (09:14)
[2024-07-12] MEDS: ASCORBIC ACID 500 MG TAB PO SCH (09:14)
[2024-07-12] MEDS: MULTIVITAMIN TAB PO SCH (10:04)
[2024-07-12] MEDS: dexAMETHasone 4 MG TAB PO SCH (10:06)
[2024-07-12] MEDS ORDERED: APIXABAN 2.5 MG TAB PO SCH (21:00)
== END 2024-07-12 13:34 | disposition home or self-care (01) ==
LOC: ASU 08:41 → 3E 08:41

== ENCOUNTER 2024-11-14 06:26 | Observation (INO) ==
--- NOTE | 2024-11-05 16:34 | Anesthesiology Consultation ---
Date of Service November 05, 2024 Assessment & Plan (1) Encounter for pre-operative examination: - s/p right KEE SAB L3-L4 1 attempt at [facility] 07/11/24. - Outpatient joint assessment: Patient is currently scheduled for inpatient pathway. If re-evaluated and patient/surgeon requests outpatient pathway, patient is not recommended candidate for outpatient joint program. - Per medical lead on 11/05/24: No known infectious disease contacts, current infectious disease symptoms in past 10 days or COVID positive test result in the past 30 days. Chart Review Chart Review: Acceptable Risk for Surgery and Patient NOT seen in Pre Admission Testing History Surgery Operation Date: 11/14/24 11:00 Proposed Procedures p Left Total Hip Arthroplasty Anterior - Jace Jordan, Height/Weight Height: 5 ft 7 in Weight: 99.337 kg Allergies Allergy/AdvReac Type Severity Reaction Status Date / Time latex Allergy Unknown Blister/itc Verified 11/05/24 15:30 christel Penicillins Allergy Unknown Itching Verified 11/05/24 15:30 Sulfa (Sulfonamide Allergy Unknown Itching Verified 11/05/24 15:30 Antibiotics) artificial sweeteners AdvReac Unknown feel like Uncoded 11/05/24 16:29 getting a bladder infection when consumed Medications Home Medications Medication Instructions Recorded Confirmed Last Taken aspirin 81 mg capsule 81 mg PO DAILY 06/05/24 11/05/24 07/09/24 atorvastatin 40 mg tablet 40 mg PO HS 06/05/24 11/05/24 07/10/24 cholecalciferol (vitamin D3) 125 125 mcg PO DAILY 06/05/24 11/05/24 07/09/24 mcg (5,000 unit) tablet (Vitamin D3) hydrochlorothiazide 12.5 mg tablet 12.5 - 25 mg PO UD PRN leg swelling 06/05/24 11/05/24 07/09/24 losartan 25 mg tablet 25 mg PO HS 06/05/24 11/05/24 07/10/24 oxycodone 5 mg tablet 5 mg PO Q4H PRN pain #30 tabs 07/11/24 11/05/24 Unknown acetaminophen 500 mg tablet 1,000 mg PO UD PRN Pain 11/05/24 11/05/24 Unknown (Tylenol Extra Strength) ascorbic acid (vitamin C) 500 mg 500 mg PO DAILY 11/05/24 11/05/24 Unknown tablet (Vitamin C) cyanocobalamin (vitamin B-12) 1,000 mcg PO DAILY 11/05/24 11/05/24 Unknown 1,000 mcg tablet (Vitamin B-12) rivaroxaban 10 mg tablet (Xarelto) 0 mg PO UD 11/05/24 11/05/24 Unknown zinc 50 mg tablet 50 mg PO DAILY 11/05/24 11/05/24 Unknown Past Medical History Medical History (Updated 11/05/24 @ 16:30 by Elaine Enriquez PA-C) Dyslipidemia History of colon polyps small , next follow up approx 2026 History of COVID-19 (05/2020) Symptoms resolved HTN (hypertension) Hx of blood clots (2019) b/l lower extremities after having Covid; treated with blood thinners , now baby aspirin daily. Obesity Osteoarthritis of hips, bilateral right hip replaced jun 2024. Renal insufficiency Past Family History Family History Daughter Family history of reaction to anesthesia around 15 + yrs ago when waking up: left piece in the throat and hyperventilated through all of that , told it came from the anesthesia. Past Surgical History Surgical History (Updated 11/05/24 @ 16:30 by Elaine Enriquez PA-C) History of anesthesia reaction Difficulty breathing/chest heaviness with anesthesia emergence after laparoscopy History of laparoscopy-assisted vaginal hysterectomy Partial (~1993) History of right hip replacement (06/2024) Hx of colonoscopy Hx of prior ablation treatment Lumbar ablation done for back pain Hx of total hysterectomy ~1994 Hx of wisdom tooth extraction Social History Smoking Status: Never smoker Do You Dip or Chew Tobacco: No Hx Alcohol Use: Yes alcohol intake frequency: holidays/special occasions only Hx Substance Use: No substance use type: does not use Lab Results Anesthesia Preop Results Results Anesthesia Widget: WBC 4.93 K/ul (4.8-10.8) 11/05/24 Hgb 14.7 g/dl (12.0-16.0) 11/05/24 Hct 44.1 % (37.0-47.0) 11/05/24 Plt 174 K/uL (130-400) 11/05/24 Na 140 mmol/L (136-145) 11/05/24 K 4.2 mmol/L (3.5-5.1) 11/05/24 Cl 105 mmol/L (98-107) 11/05/24 CO2 30 mmol/L (21-32) 11/05/24 BUN 22 mg/dl (6-23) 11/05/24 Creat 1.24 mg/dl (0.6-1.2) H 11/05/24 Glucose Level 93 mg/dl (70-99(Fasting)) 11/05/24 PT 10.9 Seconds (9.0-12.0) 11/05/24 PTT 27 Seconds (21-31) 11/05/24 INR 1.0 (0.9-1.1) 11/05/24 HA1c 5.5 % (4.5-5.6) 11/05/24 Blood Type A Negative 11/05/24 Antibody Screen NEGATIVE 11/05/24 Testing Electrocardiogram Date: 06/13/24 Sinus bradycardia, rate 56 bpm Chest X-Ray Date: 06/13/24 No acute process.
--- NOTE | 2024-11-13 07:38 | History & Physical Report ---
Date of Service November 13, 2024 Assessment & Plan (1) Osteoarthritis of left hip: We will proceed with a left anterior total of arthroplasty. Postoperatively she will be started on Eliquis for DVT prophylaxis and kept overnight in the hospital for postop medical management. She plans [facility] upon discharge. History of Present Illness Chief Complaint: Chronic worsening osteoarthritis of the left hip. Primary Care Provider: Po Farley DO Hernandez is a pleasant 74-year-old female who I did a right hip replacement on about 3 months ago. She is done very well with that. Unfortunately she is dealing with severe left hip pain. X-rays and clinical exam of the diagnostic for advanced arthritis of the left hip. After failing conservative treatment, she has elected proceed with a left anterior total of arthroplasty.. Allergies Allergy/AdvReac Type Severity Reaction Status Date / Time latex Allergy Unknown Blister/itc Verified 11/05/24 15:30 christel Penicillins Allergy Unknown Itching Verified 11/05/24 15:30 Sulfa (Sulfonamide Allergy Unknown Itching Verified 11/05/24 15:30 Antibiotics) artificial sweeteners AdvReac Unknown feel like Uncoded 11/05/24 16:29 getting a bladder infection when consumed Home Medications Medication Instructions Recorded Confirmed Type aspirin 81 mg capsule 81 mg PO DAILY 06/05/24 11/05/24 History atorvastatin 40 mg tablet 40 mg PO HS 06/05/24 11/05/24 History cholecalciferol (vitamin D3) 125 125 mcg PO DAILY 06/05/24 11/05/24 History mcg (5,000 unit) tablet (Vitamin D3) hydrochlorothiazide 12.5 mg tablet 12.5 - 25 mg PO UD PRN leg swelling 06/05/24 11/05/24 History losartan 25 mg tablet 25 mg PO HS 06/05/24 11/05/24 History oxycodone 5 mg tablet 5 mg PO Q4H PRN pain #30 tabs 07/11/24 11/05/24 Rx acetaminophen 500 mg tablet 1,000 mg PO UD PRN Pain 11/05/24 11/05/24 History (Tylenol Extra Strength) ascorbic acid (vitamin C) 500 mg 500 mg PO DAILY 11/05/24 11/05/24 History tablet (Vitamin C) cyanocobalamin (vitamin B-12) 1,000 mcg PO DAILY 11/05/24 11/05/24 History 1,000 mcg tablet (Vitamin B-12) rivaroxaban 10 mg tablet (Xarelto) 0 mg PO UD 11/05/24 11/05/24 History zinc 50 mg tablet 50 mg PO DAILY 11/05/24 11/05/24 History Past Med/Surg History Problem List Osteoarthritis of left hip Medical History History of colon polyps small , next follow up approx 2026 Obesity Osteoarthritis of hips, bilateral right hip replaced jun 2024. Renal insufficiency Hx of blood clots (2019) b/l lower extremities after having Covid; treated with blood thinners , now baby aspirin daily. History of COVID-19 (05/2020) Symptoms resolved HTN (hypertension) Dyslipidemia Surgical History History of right hip replacement (06/2024) History of anesthesia reaction Difficulty breathing/chest heaviness with anesthesia emergence after laparoscopy Hx of colonoscopy Hx of prior ablation treatment Lumbar ablation done for back pain History of laparoscopy-assisted vaginal hysterectomy Partial (~1993) Hx of wisdom tooth extraction Hx of total hysterectomy ~1994 Family History Daughter Family history of reaction to anesthesia around 15 + yrs ago when waking up: left piece in the throat and hyperventilated through all of that , told it came from the anesthesia. Social History Smoking Status: Never smoker Second Hand Exposure: No; Do You Dip or Chew Tobacco: No; Hx Alcohol Use: Yes Hx Substance Use: No Preferred Language: Pakistani Communication Ability: Effective Meat Washer Required: No Beliefs That Will Affect Care: None Current Living Situation: Spouse Feels Safe at Home: Yes Assistive Devices: Walker Assistive Devices Comment: walker prn Review of Systems All systems reviewed & are unremarkable except as noted in HPI & below. Physical Exam On physical exam of the left hip, she has decreased range of motion. She has pain with internal/external rotation. All of her pain is located in the groin.. Constitutional WD/WN, vitals as above Eyes PERRL, conjunctivae normal, anicteric sclerae ENMT external ear and nose normal, oropharynx normal Neck trachea midline, no thyromegaly Respiratory normal respiratory effort Cardiovascular RRR, no murmur, no edema Gastrointestinal (Abdomen) normal bowel sounds, soft, nontender, no hepatosplenomegaly Psychiatric A+Ox3, euthymic affect Results & Data Results & Data Laboratory Results . Diagnostic Findings X-rays of the left hip show advanced osteoarthritis with joint space narrowing, osteophyte formation, and [id number] articulation. PG Care Time/CCT Total # of Minutes Spent Total Time Spent with Patient: Total time spent is greater than 50% in coordination of care (as documented) at patient's floor/unit and/or counseling patient: Coding Level of Care Code None Diagnoses Osteoarthritis of left hip M16.12
[2024-11-14] MEDS ORDERED: BUPIVACAINE 0.5 % 5 MG/1 ML PF 10ML VIAL ONE (06:27)
--- NOTE | 2024-11-14 06:47 | History & Physical Bridge Note ---
Date of Service November 14, 2024 History & Physical Bridge Note I have examined the patient, reviewed the History & Physical and in the interval since the performance of the History & Physical I have noted the following changes of clinical significance: no changes noted
[2024-11-14] MEDS ORDERED: fentaNYL citrate PF 100 MCG/2 ML VIAL ONE (06:53)
[2024-11-14] MEDS ORDERED: MIDAZOLAM HCL 1 MG/ML 2ML VIAL ONE (06:53)
[2024-11-14] MEDS ORDERED: LIDOCAINE 2% 2 ML VIAL/AMP(20MG/ML) INFIL ONE (06:56)
[2024-11-14] MEDS ORDERED: PROPOFOL IV EMULSION 10 MG/ML 20 ML VIAL IV ONE ×4 (06:56→09:12)
[2024-11-14] MEDS ORDERED: ONDANSETRON INJ 2 MG/ML 2 ML VIAL ONE (06:57)
[2024-11-14] MEDS ORDERED: PHENYLEPHRINE HCL 10 MG/ML VIAL ONE (07:01)
[2024-11-14] MEDS: LR 500ML BOLUS, THEN 15ML/HR IV SCH (07:11)
[2024-11-14] MEDS: ACETAMINOPHEN 500 MG TAB PO SCH ×2 (07:11→13:20)
[2024-11-14] MEDS: FAMOTIDINE 20 MG TAB PO SCH (07:11)
[2024-11-14] MEDS: GABAPENTIN 300 MG CAP PO SCH (07:12)
[2024-11-14] MEDS: LR 60ML/HR IV SCH (07:12)
[2024-11-14] MEDS: dexAMETHasone**PF** 10 MG/ML VIAL IV SCH (07:12)
[2024-11-14] MEDS ORDERED: ATROPINE SULFATE 0.1 MG/ML 10ML SYR IV PRN (07:33)
[2024-11-14] MEDS ORDERED: ePHEDrine sulfate 50 MG/ML AMP IV PRN (07:33)
[2024-11-14] MEDS ORDERED: fentaNYL citrate PF 100 MCG/2 ML VIAL IV PRN (07:33)
[2024-11-14] MEDS ORDERED: ONDANSETRON INJ 2 MG/ML 2 ML VIAL IV PRN ×2 (07:33→11:31)
[2024-11-14] MEDS ORDERED: PROMETHAZINE HCL 6.25 MG in SODIUM CHLORIDE 0.9% 50 ML IV PRN (07:33)
[2024-11-14] MEDS: TRANEXAMIC ACID 1,000 MG **IV Pre-op IV SCH (07:51)
--- OUTSIDE RECORDS SUMMARY | 2024-11-14 07:56 | External Medical Summary | Summary of Care ---
Author Name Unknown Organization [facility] Address [address] [place] [address] Phone [phone] Care Team Providers Care Agency Service Representative Name Role Phone Po Farley DO Primary Care Provider Encounter Details Date Type Department Care Team (Late st Contact Info) Description 11/06/2024 Orders Only Family Practice [facility] [address] [place] [id number] Po Farley DO [address] [place] [id number] Allergies Active Allergy Reactions Criticality Noted Date Comments Latex 10/28/1999 Peanut Oil Diarrhea 02/07/2022 Penicillins 07/11/2024 Other Reaction(s): Itching Soy Allergy (Obsolete) 08/13/2014 Sulfa Antibiotics 12/04/2005 rash documented as of this encounter (statuses as of 11/06/2024) Medications Cyanocobalamin (VITAMIN B-12) 1000 MCG Tablet Take 1 Tablet by mouth in the morning. Active Vitamin C 100 MG Oral Tablet Take 1 Tablet by mouth in the morning. Active Vitamin D 25 MCG (1000 UT) Oral Tablet Take by mouth. Active Aspirin 81 MG Oral Tablet Delayed Release Take 1 Tablet by mouth in the morning. 2 tablets daily. Active Mucinex DM 30-600 MG Oral Tablet Extended Release 12 HourIndications :Influenza A Take 1 Tablet by mouth 2 times a day as needed for Cough. Take with plenty of water. Do not cut, crush or chew 60 Tablet 2 09/08/2024 Active Atorvastatin Calcium 40 MG Oral Tablet (Lipitor)Indica tions:takes at night Take 1 Tablet by mouth in the morning. 90 Tablet 3 09/08/2024 Active Losartan Potassium 25 MG Oral Tablet (Cozaar) Take 1 Tablet by mouth in the morning. 90 Tablet 3 09/08/2024 Active hydroCHLOROthia zide 25 MG Oral Tablet (Hydrodiuril)In dications:HTN, goal below 130/80,HTN, goal below 150/90,Leg swelling Take 1/2 to 1 tablet by mouth daily as needed for leg swelling. 90 Tablet 3 09/08/2024 Active documented as of this encounter (statuses as of 11/06/2024) Active Problems Problem Noted Date Diagnosed Date History of DVT (deep vein thrombosis) 12/06/2022 Hypertensive kidney disease with stage 3b chronic [...] as of this encounter (statuses as of 11/06/2024) Resolved Problems Problem Noted Date Diagnosed Date Resolved Date Acute deep vein thrombosis ( DVT) of proximal vein of left lower extremity 01/05/2022 12/06/2022 Hypertensive kidney disease with stage 3a chronic kidney disease 01/05/2022 08/28/2024 Chronic kidney disease, stage 3b 09/05/2021 03/06/2024 [...] Hair loss 08/13/2018 09/11/2018 Breast cancer screening 03/26/2018 04/12/2018 Encounter for examination fo r normal comparison and control in clinical research program 01/23/2018 03/29/2020 Overview (12/13/2020): DO NOT DELETE [facility] DETECT Study: Project # [id number], Die Casting Machine Setter: Gareth Hairston, PhD. SUMMARY: Goal: Establish test [...] contact study staff at ; after hours Die Casting Machine Setter via the [facility] hospital tablet machine operator . Please contact study team before resolving/deleting from patients problem list. Study phone number: [phone]. Diagnosis changed due to Research Module. Go to Snapshot for study details. Encounter for examination fo r normal comparison and control in clinical research program 01/23/2018 04/27/2022 Overview (12/13/2020): DO NOT DELETE [facility] DETECT Study: Project # [id number], Die Casting Machine Setter: Mario Alberto Alicia, MS, MPH. SUMMARY: Goal: [...] contact study staff at ; after hours Die Casting Machine Setter via the [facility] hospital tablet machine operator . - Please contact study team before resolving/deleting from patients problem list. Study phone number: [phone]. Diagnosis changed due to Research Module. Go to Snapshot for study details. Hypertension 11/29/2018 documented as of this encounter (statuses as of 11/06/2024) Immunizations Name Administration Dates Next Due COVID-19, [...] Date Recorded PHQ Adult Total Score 0 08/28/2024 Hunger Vital Sign Answer Date Recorded Worried About Running Out of Food in the Last Ye ar Never true 04/14/2020 Ran Out of Food in the Last Year Never true 04/14/2020 Comments No Sex and Gender Information Value Date Recorded Sex Assigned at Female 04/14/2020 9:09 AM EDT Legal Sex Female 5:56 AM EST Gender Identity Female 04/14/2020 9:09 AM EDT Sexual Orientation Straight 04/14/2020 9: 09 AM EDT Occupation Industry Job Start Date Job End Date Not on file Not on file Not on file Not on file documented as of this encounter Plan of Treatment Upcoming Encounters Date Type Department Care Team (Late st Contact Info) Description 03/19/2025 10:20 AM EDT Office Visit [facility] [address] [place] [phone] Po Farley, DO [address] [place] [phone] 10/12/2025 3:00 PM EST Office Visit [facility] [address] [place] [address] Po Farley, [address] [place] [phone] 03/09/2026 9:40 AM EDT Office Visit [facility] [address] [place] [address] Po Farley DO [address] [place] [address] Scheduled Procedures Name Priority Associated Diagnoses Date/Ti me COLONOSCOPY FLEXIBLE PROXIMAL DIAGNOSTIC Recall History of colon polyps Health Maintenance Due Date Last Done Comments Cologuard 1996 Sigmoidoscopy 1996 Fecal Occult Blood Test 11/24/1998 11/24/1997 DTap/Tdap Vaccines (2 - Td or Tdap) 01/02/2021 01/02/2011, 01/25/2001, 01/14/1990 Adult Wellness Visit 08/08/2022 08/08/2021 Influenza Vaccine (FLU shot) (#1) 2024 05/15/2022, 06/30/2021, 05/26/2011, Additional history exists Mammogram 03/19/2025 03/19/2024, 02/24, 09/09/2021, Additional history exists GFR 05/08/2025 11/05/2024, 05/29, 06/08/2022, Additional history exists Depression Screening 08/28/2025 08/28/2024 Albumin/Creatinine Ratio 11/05/2025 025, 06/25/2023, 02/03/2022, Additional history exists CKD HGB USE SMARTSET 48714 11/05/202511/05, 06/08/2022, 06/08/2022, Additional history exists CKD PHOS USE SMARTSET 56100 11/05/202510/25, 06/25/2023, 06/08/2022, Additional history exists HbA1c 11/05/2025 11/05/2024, 05/29, 06/08/2022, Additional history exists Colonoscopy 02/17/2027 02/17/2022, 01/26, 08/18/2014, Additional history exists Colorectal Cancer Screening 02/17/2027 Lipid Panel 11/05/2029 11/05/2024, 05/29, 06/08/2022, Additional history exists DXA Scan Discontinued 10/23/2001, 10/23/2001 Pneumococcal Vaccine: 50+ Years Completed 08/13/2018, 05/09/2017 Zoster Vaccines Completed 05/19/2021, 06/18/2019 COVID-19 Vaccine Discontinued 11/10/2021, , 11/19/2020 RETIRED - COLONOSCOPY-EVERY 5 YRS AGES 18-100 Discontinued 02/17/2022, 02/17/2022, 08/18/2014, Additional history exists HPV (Gardasil) Vaccine Aged Out No lo nger eligible based on patient's age to complete this topic Hepatitis B Vaccine Aged Out No longe r eligible based on patient's age to complete this topic MENINGOCOCCAL (MENACTRA/MENVEO) Aged Out No longer eligible based on patient's age to complete this topic Meningitis B Vaccine (Bexsero/Trumemba) Aged Out No longer eligible based on patient's age to complete this topic documented as of this encounter Medical Devices Not on filedocumented as of this encounter Procedures Procedure Name Priority Date/Time Associated Diagnosis Comments CHEMISTRY-OUTSIDE Routine 11/05/2024 documented in this encounter Results * CHEMISTRY-OUTSIDE (11/05/2024) Not all results display below - see scan for full detail OUTSIDE LAB (SEE SCANNED REPORT) Comment:SCAN INCLUDES - PT I NR, PTT, CBCD CREATININE OUTSIDE L AB (SEE SCANNED REPORT) EGFR OUTSIDE LA B (SEE SCANNED REPORT) POTASSIUM OUTSIDE LA B (SEE SCANNED REPORT) GLUCOSE OUTSIDE LA B (SEE SCANNED REPORT) HOURS FASTING OUTSID E LAB (SEE SCANNED REPORT) TRIGLYCERIDES-OUT SIDE LAB OUTSIDE LAB (SEE SCANNED REPORT) CHOLESTEROL-OUTSI DE LAB OUTSIDE LAB (SEE SCANNED REPORT) HDL-OUTSIDE LAB OUTS [facility] LAB (SEE SCANNED REPORT) CHOL/HDL RATIO-OUTSIDE LAB OUTSIDE LA B (SEE SCANNED REPORT) LDL (CALCULATED)-OUTS [facility]AME[facility] LAB OUTSIDE LAB (SEE SCANNED REPORT) LDL (DIRECT MEASURE)-OUTSIDE LAB OUTSIDE LAB (SEE SCANNED REPORT) HEMOGLOBIN, [id number] LAB OUTSIDE LAB (SEE SCANNED REPORT) PHOSPHORUS-OUTSID E LAB OUTSIDE LAB (SEE SCANNED REPORT) PTH-OUTSIDE LAB OUTS [facility] LAB (SEE SCANNED REPORT) MICROALBUMIN RATIO-OUTSIDE LAB OUTSIDE LA B (SEE SCANNED REPORT) PROTEIN, UA-OUTSIDE LAB OUTSIDE LAB (SEE SCANNED REPORT) HGB 14.7 12.0 - 16.0 G/DL OUTSIDE LAB (SEE SCANNED REPORT) 11/05/2024 us Jace Jordan DO LABORATORY Final Res ult OUTSIDE LAB (SEE SCANNED REPORT) documented in this encounter Care Teams Agency Service Representative Relationship Specialty Start Date End Date Po Farley DO [address] [place] [id number] PCP - General Family Medicine 03/26/18 documented as of this encounter
[2024-11-14] MEDS: ceFAZolin 2000MG 2,000 MG/15 ML SYR IV SCH ×2 (08:09→16:05)
[2024-11-14] MEDS: ROPIV 0.5% 246mg, Ketorolac 30mg, EPINEPHrine 0.5mg in NSS INFIL SCH (08:43)
[2024-11-14] MEDS: ORTHO JOINT ANESTHETIC ONE (08:45)
[2024-11-14] MEDS: TRANEXAMIC ACID 1,000 MG **IV Intra-op IV SCH (09:09)
[2024-11-14] MEDS ORDERED: ePHEDrine sulfate 50 MG/5 ML SYR ONE (09:09)
--- NOTE | 2024-11-14 09:13 | Operative Report ---
PG Post Operative Report Pre & Post Diagnosis Operation Date: 11/14/24 08:00 Pre-Op Diagnosis: Arthritis Left Hip Post-Op Diagnosis: Arthritis Left Hip I identified the patient and participated in the time-out.: Yes Procedure Operation Date: 11/14/24 08:00 Actual Procedures p Left Anterior Total Hip Arthroplasty(Left) - Jace Jordan DO Surgeon Jace Jordan DO Poured Pipe Maker Bradford Valle PA-C Estimated Blood Loss 150 Findings Consistent with Post-Op Diagnosis Specimens Left femoral head Description of Procedure Implants used I used a ZimmerBiomet total hip arthroplasty system with a size 2 high offset Avenir Complete stem, a 52 mm G7 cup with a 25mm screw, an E1 polyethylene liner, a 36 mm ceramic head with a 0 neck. Mary arrived at the hospital for the above procedure. She was seen in the preoperative holding area and the operative extremity was identified and signed. She was given a spinal anesthetic, a preoperative antibiotic, and TXA. She was then taken back to the operating room and laid on the table in the supine position. She was given basic sedation. The operative leg was secured to a Sweetie stst leg positioner. The hip was then prepped and draped in sterile fashion. A timeout was done and the patient and the operative extremity was properly identified. An anterior approach was used. Dissection was taken down through the fascia and the tensor muscle belly was retracted laterally and the rectus was retracted medially. The circumflex vessels were identified and ligated. The capsule was then incised and tagged for later repair. The femoral neck was then cut and the femoral head was removed. The acetabulum was exposed. Time was spent doing a complete circumferential labral release. Sequential reaming of the acetabulum up to a size 51 reamer was done. Final reamings were done under fluoroscopy to ensure appropriate version. A Biomet 52 mm G7 cup was then impacted into place. A single 25 mm screw was placed. The E1 polyethylene liner was then snapped into place. Surrounding soft tissues were then injected with 100 cc of an orthopedic pain control cocktail. The proximal femur was then exposed. Sequential broaching up to a size 2 broach was done. Off that broach a size 36 head with a 0 neck was trialed. The hip was reduced and fluoroscopic images showed anatomic alignment of the implants in acceptable length. The broach was removed. The final size 2 high offset Avenir Complete stem was then impacted into place. A ceramic 36 mm head with a 0 neck was then impacted onto the stem and the hip was reduced. Final fluoroscopic images showed anatomic alignment of the hip. The capsule was then closed with #1 Vicryl suture. A dilute betadyne lavage was then done for 3 minutes. The joint was then irrigated with normal saline solution. The fascia was closed with #1 PDS suture. Skin was closed with 2-0 Vicryl, baudilio, and a Silverlon dressing. She was then transferred to a hospital bed and taken to the post anesthesia care unit in stable condition. She tolerated the procedure well. Bradford Valle PA-C, was present for the entire procedure. He was critical for patient positioning, prepping, draping, retraction exposure, wound closure and application of sterile dressing. I attest to the content of the Intraoperative Record and any orders documented therein. Any exceptions are noted below.
--- NOTE | 2024-11-14 10:07 | XRay Report ---
XR hip 1V LT w pelvis CLINICAL HISTORY: IN PACU - Post Surgical COMPARISON: 07/11/2024 FINDINGS: Bilateral hip prostheses show no hardware complication. There is expected soft tissue gas on the left. Skin baudilio are present laterally. IMPRESSION: Unremarkable postoperative exam. ACT 112: Negative or not required by law. Electronically signed by: Gareth Solomon M.D. 11/14/2024 10:06 AM
--- NOTE | 2024-11-14 10:24 | Fluoroscopy Report ---
FL hip LT 1V CLINICAL HISTORY: LT ANTERIOR KEE COMPARISON STUDY: None FLUOROSCOPY TIME: 13 seconds FLUOROSCOPY IMAGES: 2 EXPOSURE DOSE: 1.9 mGy FINDINGS: Fluoroscopy was provided for left hip prosthesis. IMPRESSION: Intraoperative fluoroscopy. ACT 112: Negative or not required by law. Electronically signed by: Gareth Solomon M.D. 11/14/2024 10:23 AM
--- NOTE | 2024-11-14 10:28 | Anesthesiology Progress Note ---
Date of Service November 14, 2024 Anesthesia Post Procedure Vital Signs Vital Signs: Temp Pulse Resp BP Pulse Ox O2 Del Method O2 Flow Rate 11/14/24 10:15 36.2 C L 65 17 111/58 L 96 Room Air 11/14/24 10:05 78 16 116/61 94 Room Air 11/14/24 09:55 74 14 106/61 97 Room Air 11/14/24 09:45 72 17 108/58 L 100 Oxymask 5 11/14/24 09:35 36.2 C L 73 18 102/51 L 96 Oxymask 5 11/14/24 06:57 36.5 C 63 20 137/87 100 Room Air Transfer of Care Handoff Completed per policy Notes Mental Status: alert / awake / arousable Patient Amnestic to Procedure: Yes Nausea / Vomiting: adequately controlled Pain: adequately controlled Airway Patency, RR, SpO2: stable & adequate BP & HR: stable & adequate Hydration State: stable & adequate Neuraxial Anesthesia: was administered and sensory block is resolving Anesthetic Complications: no major complications apparent and Pt Satisfied with anesthetic care
[2024-11-14] MEDS ORDERED: METOCLOPRAMIDE HCL INJ 5 MG/ML 2 ML VIAL IV PRN (11:31)
[2024-11-14] MEDS ORDERED: HYDROmorphone INJ 0.5 MG/0.5 ML SYR IV PRN (11:31)
[2024-11-14] MEDS ORDERED: bisacodyL 10 MG SUPP PR PRN (11:31)
[2024-11-14] MEDS ORDERED: MAGNESIUM HYDROXIDE SUSP 30 ML UDC PO PRN (11:31)
[2024-11-14] MEDS ORDERED: oxyCODONE HCL IR 5 MG TAB (IMMEDIATE RELEASE) PO PRN (11:31)
[2024-11-14] MEDS ORDERED: NALOXONE HCL 0.4 MG/1 ML VIAL/CARP IV PRN (11:31)
[2024-11-14] MEDS: KETOROLAC TROMETHAMINE 15 MG/ML VIAL IV SCH (13:20)
[2024-11-14 19:11] VITALS: RESP 16
[2024-11-14] MEDS: LOSARTAN POTASSIUM 25 MG TAB PO SCH (22:19)
[2024-11-14] MEDS: DOCUSATE SODIUM 100 MG CAP PO SCH (22:19)
[2024-11-14] MEDS: SENNA 8.6 MG TAB PO SCH (22:19)
[2024-11-14] MEDS: ATORVASTATIN 40 MG TAB PO SCH (22:19)
--- NOTE | 2024-11-15 06:58 | Orthopedic Progress Note ---
Date of Service November 15, 2024 Assessment & Plan (1) Status post left hip replacement: Overall she is doing very well. She is not having as much pain in the left hip. She she will be seen by physical therapy today for ambulation and range of motion exercises. She is on Eliquis for DVT prophylaxis. She can be discharged to home later today. She will follow-up with orthopedics in 2 weeks. Osmar Hernandez was seen and examined at bedside this morning. Overall she is doing very well. She is not having much pain in the left hip. She has been up and ambulating to the bathroom. She has no complaints.. Review of Systems All systems reviewed & are unremarkable except as noted in HPI & below. Physical Exam On physical examination left hip, the dressing is clean and dry. Her leg is out full extension. She has active dorsiflexion plantarflexion of her left ankle.. Results & Data Results & Data Laboratory Results . Diagnostic Findings Postoperative x-rays of the left hip show the prosthesis to be in anatomic alignment without any evidence of fracture complication, or loosening.. PG Care Time/CCT Total # of Minutes Spent Total Time Spent with Patient: Total time spent is greater than 50% in coordination of care (as documented) at patient's floor/unit and/or counseling patient: Coding Level of Care Code 28250 Post Operative Follow-Up Diagnoses Status post left hip replacement Z96.642
--- NOTE | 2024-11-15 06:59 | Discharge Summary ---
Date of Service November 15, 2024 Admission HPI (Per Admitting) Mary is a pleasant 74-year-old female who I did a right hip replacement on about 3 months ago. She is done very well with that. Unfortunately she is dealing with severe left hip pain. X-rays and clinical exam of the diagnostic for advanced arthritis of the left hip. After failing conservative treatment, she has elected proceed with a left anterior total of arthroplasty.. Admission Exam (Per Admitting) On physical exam of the left hip, she has decreased range of motion. She has pain with internal/external rotation. All of her pain is located in the groin.. Principal Diagnosis Same as "Discharge Diagnosis" noted below under Discharge Instructions. Discharge Exam On physical examination left hip, the dressing is clean and dry. Her leg is out full extension. She has active dorsiflexion plantarflexion of her left ankle.. Discharge Data Procedures Performed Operation Date: 11/14/24 08:00 Actual Procedures p Left Anterior Total Hip Arthroplasty(Left) - Jace Jordan DO Ordered Studies 11/14/24 08:00 FL hip LT 1V Routine Hospital Course (1) Status post left hip replacement: On November 14, 2024 Mary arrived at [facility] and underwent a left hip replacement without complication. She had a spinal anesthetic. Postoperatively, she was started on Eliquis for DVT prophylaxis and transferred to the general orthopedic floors. Her hospital course was uneventful. On postop day #1, her vital signs were stable and her pain was well-controlled. She was able to participate well with physical therapy doing ambulation and range of motion exercises. She was then discharged to home. She will follow-up with orthopedics in 2 weeks. PG Care Time/CCT Total # of Minutes Spent Total Time Spent with Patient: Total time spent is greater than 50% in coordination of care (as documented) at patient's floor/unit and/or counseling patient: Discharge Plan Discharge Items Patient Disposition: Home - Self-Care Reason For Visit: Arthritis Left Hip Discharge Diagnosis: Left hip replacement Activity: Per Instructions section Non-emergency contact: Surgeon Call non-emergency contact if: your wound has increased redness and your wound has increased drainage Follow-up/Referrals: Po Farley DO [Primary Care Provider] - Diet: Regular Addtl Attending Provider Instructions: Activity and Therapy Recommendations: * If you are using [facility] then therapy will be provided at your home until they feel you have accomplished all of your goals. * If you are using [facility] then Physical Therapy will be provided until they feel you are ready to start Outpatient Physical Therapy. * If you are not using home therapy then Outpatient Physical Therapy should start about 3-5 days from your day of surgery. Therapy will last about 6-10 weeks * It is important not to put a pillow under your knee when you are relaxing or sleeping. It is just as important to make sure you are getting your knee perfectly straight as it is to regain your knee bend. * You were shown a series of exercises in the hospital. Do these exercises three times each day including the exercises you were shown in physical therapy. * Get up and walk several times each day. For the first four weeks, try not to stand or walk for more than one hour at a time. If you do stand or walk for more than one hour, you will not hurt anything, but your leg will likely swell. * As you feel comfortable, you may change from the walker or crutches to a cane and then to independent walking. Medications: * Narcotic You will likely be sent home from the hospital with a prescription for the narcotic pain medication that worked best throughout your stay. * Cefadroxil -take the antibiotic twice a day for 10 days to help prevent infection. * Take Eliquis 2.5 mg twice a day for 4 weeks after your surgery. * Other medications may be prescribed for specific circumstances. If you have any questions, please call the office at . * Resume previous home medications unless otherwise instructed TEDs/Elastic Stockings: The white elastic stockings help limit swelling and prevent blood clots from forming in your legs.~ The more you wear them, the more they work. Wear them for 2 weeks. Dressing Care: The dressing can be changed after physical therapy on postop day #1. Daily dry dressing changes for a few days, especially if the incision is still draining some. If the incision is not draining then you may leave the baudilio open to air. If there is a little bit of drainage or if the baudilio are getting stuck on your clothing then cover the incision with a dry dressing. The baudilio will be removed at your 2 week follow-up appointment. Showering: You may shower 5 days from the day of surgery as long as the incision is no longer draining. You may shower with the baudilio exposed. Let soapy water run over the baudilio and pat them dry. Do not scrub or soak the incision. Diet: You may resume your previous diet. Things To Watch For: * Drainage from the incision site that occurs more than one week after your surgery. * Increased redness at the incision site. * Fever above 102 degrees Fahrenheit. * Unusual chest pain or shortness of breath. * Call [facility] at with any of the above problems Follow-Up Visit: Follow-up with Dr. Jordan's office 2-3 weeks after your day of surgery. We will remove your baudilio and answer any questions. If you have any additional questions or concerns, Dr Jordan is usually in the office at the same time and will be available An appointment was probably scheduled when you signed-up for surgery in the office. If you have any questions call Office Instructions: More detailed instructions as well as Frequently Asked Questions were provided in a folder by our office when you signed-up for surgery. Please review these instructions when you get home. If you have any further questions or concerns, please feel free to call the office at [phone] Pending Studies at Discharge: No Stand-Alone Forms: My [facility], Smoking Cessation Medications and DC Order Prescriptions: New cefadroxil 500 mg capsule 500 mg PO BID 10 Days Qty: 20 0RF Eliquis 2.5 mg Tablet 2.5 mg PO BID 28 Days Qty: 56 0RF Continued cyanocobalamin (vitamin B-12) [Vitamin B-12] 1,000 mcg Tablet 1,000 mcg PO DAILY ascorbic acid (vitamin C) [Vitamin C] 500 mg Tablet 500 mg PO DAILY Patient Comments: not daily, sometimes feel like getting a bladder infection when taking zinc 50 mg Tablet 50 mg PO DAILY acetaminophen [Tylenol Extra Strength] 500 mg Tablet 1,000 mg PO UD PRN (Reason: Pain) oxycodone 5 mg Tablet 5 mg PO Q4H PRN (Reason: pain) Qty: 30 0RF atorvastatin 40 mg Tablet 40 mg PO HS losartan 25 mg Tablet 25 mg PO HS hydrochlorothiazide 12.5 mg Tablet 12.5 - 25 mg PO UD PRN (Reason: leg swelling) cholecalciferol (vitamin D3) [Vitamin D3] 125 mcg (5,000 unit) Tablet 125 mcg PO DAILY aspirin 81 mg Capsule 81 mg PO DAILY Admission Data Admit Date/Time: 11/14/24 09:39 Attending Provider: Jace Jordan Admit Provider: Jace Jordan Primary Care Provider: Po Farley
[2024-11-15 07:35] VITALS: BP 127/81; PULSE 62; TEMP 97.7; O2SAT 96
[2024-11-15] MEDS: CYANOCOBALAMIN (B-12) 500 MCG TABLET PO SCH (07:51)
[2024-11-15] MEDS: MULTIVITAMIN TAB PO SCH (07:51)
[2024-11-15] MEDS: CHOLECALCIFEROL 125 MCG (5,000 UNITS) TAB PO SCH (07:52)
[2024-11-15] MEDS: APIXABAN 2.5 MG TAB PO SCH (07:52)
[2024-11-15] MEDS: dexAMETHasone 4 MG TAB PO SCH (07:52)
== END 2024-11-15 10:55 | disposition home or self-care (01) ==
LOC: PACUINP 06:26 → ASU 06:26 → 3E 12:35
DX: Z96.641 Presence of right artificial hip joint; Z88.2 Allergy status to sulfonamides; I12.9 Hypertensive chronic kidney disease with stage 1 through stage 4 chronic kidney disease, or unspecified chronic kidney disease; N18.9 Chronic kidney disease, unspecified; Z88.5 Allergy status to narcotic agent; Z79.01 Long term (current) use of anticoagulants; Z79.82 Long term (current) use of aspirin; Z88.0 Allergy status to penicillin; M16.12 Unilateral primary osteoarthritis, left hip; Z91.040 Latex allergy status; Z79.891 Long term (current) use of opiate analgesic